=== PATIENT | female | born 1965 | race African-American/Black ===

== ENCOUNTER → 2017-09-02 09:39 | Outpatient (CLI) | payer MEDICARE, MEDICAID ==
[~2017-09-02 09:39] MED LIST: BENZTROPINE ME0.5 MG PO; HALDOL5 MG; LINZESS145 MCG PO; OMEPRAZOLE20 M1; PAXIL20 MG; ZANTAC150 MG PO
[2017-09-22 07:47] VITALS: BMI 33.1
== END | disposition home or self-care (01) ==
LOC: D.RAD 08-30 08:30 → EDBD 09:39 → D.RAD 10:30
DX: K44.9 Diaphragmatic hernia without obstruction or gangrene (principal)

== ENCOUNTER 2017-09-12 11:40 | Day surgery (SDC) | payer MEDICARE, MEDICAID ==
[~2017-09-12] VITALS: Ht 167.6 cm; Wt 93.2 kg
--- NOTE | ~2017-09-12 | OP ---
PATIENT NAME: ERYN HURT MEDICAL RECORD: [id number] :69 LOCATION:DAllanOPS ADMISSION DATE: SURGEON: TAMICA DICK DO DATE OF OPERATION: 09/12/2017 PROCEDURE: EGD with dilation and biopsies. INDICATIONS FOR PROCEDURE: Achalasia, heartburn, nausea and vomiting, epigastric abdominal pain. SCOPE: Olympus video gastroscope. MEDICATIONS: Propofol 200 mg IV per anesthesia. ESTIMATED BLOOD LOSS: Minimal. COMPLICATIONS: None. FINDINGS: Informed consent was given. The patient was made comfortable with the above medication. After reaching an adequate level of sedation by slow IV push, the patient was placed in the left side. The endoscope was advanced under direct visualization through the mouth to the second portion of the duodenum with ease. The entire esophagus had a dilated appearance. As we approached the distal esophagus and GE junction, there were findings consistent with achalasia. The GE junction took some gentle pressure to open for the endoscope to pass through it. Within this GE junction, LA class C reflux-induced esophagitis can be appreciated with a couple esophageal ulcers present. There was no active bleeding. Cold forceps biopsies were taken to submit for histopathology. The endoscope was advanced beyond the GE junction into the stomach and retroflexed to view the cardia. It is difficult to tell, but there does appear to be possibly a past fundoplication. The mucosa of the stomach and small intestine all appeared normal. Random biopsies were taken in the stomach with cold forceps to submit for histology and to rule out the presence of H. pylori. An 18-20 mm dilating CRE balloon was placed through the working channel of the endoscope and the endoscope was withdrawn back into the esophagus. The balloon was inflated and dilation was performed from 18-20 mm successfully. The balloon was then withdrawn from the patient and the endoscope was withdrawn from the patient. The patient tolerated the procedure well and there were no complications. IMPRESSION: 1. LA class C reflux-induced esophagitis with a couple esophageal ulcers present. 2. Likely achalasia with narrowing of the distal esophagus at the GE junction and a markedly dilated proximal esophagus. 3. Probable prior intervention involving the cardia of the stomach. PLAN AND RECOMMENDATIONS: 1. Discharge home when recovery parameters are met. 2. Follow up biopsy specimen results. 3. GERD diet and reflux precautions. 4. Continue current medications. 5. Add Carafate or sucralfate suspension 1 gram q.i.d. 6. Referral back to [facility] for definitive therapy of achalasia. OPERATIVE REPORT [id number] ERYN HURT TRANSINT:[id number] Voice Confirmation ID: [id number] DOCUMENT ID: [id number] TAMICA DICK DO at 1212 CC: [id number] DICTATION DATE: 09/12/17 1529 EDITORIAL INTERN: 09/12/17 1908 [facility] 09/12/17 [facility] [address] [place] [address]
[2017-09-12] MEDS ORDERED: HALDOL5 MG (14:00)
[2017-09-12] MEDS ORDERED: LINZESS145 MCG PO (14:01)
[2017-09-12] MEDS ORDERED: OMEPRAZOLE20 M1 (14:01)
[2017-09-12] MEDS ORDERED: PAXIL20 MG (14:02)
[2017-09-12] MEDS ORDERED: ZANTAC150 MG PO (14:02)
[2017-09-12] MEDS ORDERED: BENZTROPINE ME0.5 MG PO (14:03)
[2017-09-12 14:05] VITALS: BP 97/51; Ht 167.6 cm; Wt 93.2 kg
== END 2017-09-12 16:52 | disposition home or self-care (01) ==
LOC: EDBD 11:40 → D.OPS 11:40
DX: K22.0 Achalasia of cardia (principal); K21.0 Gastro-esophageal reflux disease with esophagitis; K22.10 Ulcer of esophagus without bleeding; Z01.812 Encounter for preprocedural laboratory examination

== ENCOUNTER 2017-09-22 06:52 | Outpatient (CLI) | payer MEDICARE, MEDICAID ==
[~2017-09-22] VITALS: Ht 167.6 cm; Wt 93.2 kg
--- NOTE | ~2017-09-22 | HEMODYNAMI ---
PATIENT:ERYN HURT MEDICAL RECORD: [id number] : 69 LOCATION:D.CAT ADMISSION DATE: 09/22/17 Generatedon:09/22/201710:22 Patient name: ERYN HURT Patient #: [id number] SSN: : 1965 Date of study: 09/22/2017 Page: Of Hemodynamic Procedure Report Patient Data Patient Demographics Procedure consent was obtained First Name: ERYN Gender: Female Last Name: BLU : 1965 Middle Initial: CARMEN Escobedo Age: 52 year(s) Patient #: [id number] Race: Black Additional ID: [id number] Contact details [address]: [address] [place] [address] State: [place] City: [place] Zip code: [address] Past Medical History Allergies Allergen Reaction Date Comments Reported Morphine 09/22/2017 Admission Admission Data Admission Date: 09/22/2017 Admission Time: 6:52 Procedure Procedure Types Cath Procedure Diagnostic Procedure LHC LHC w/Coronaries Procedure Description Procedure Date Procedure Date: 09/22/2017 Procedure Start Time: 10:10 Procedure End Time: 10:20 Procedure Staff Name Function Ino Herzog MD Performing Physician Lacey Odonnell RT Monitor Ehsan Reyes RN Nurse Raegan Roy RT Scrub Procedure Data Cath Procedure Fluoroscopy Diagnostic fluoroscopy Total fluoroscopy Time: 1.7 time: 1.7 min min Diagnostic fluoroscopy Total fluoroscopy dose: 379 dose: 379 mGy mGy Contrast Material Contrast Material Type Amount (ml) Isovue 370 33 Entry Location Entry Primary Successful Side Size Upsize Upsize Entry Closure Diaz ccessful Closure Location (Fr) 1 (Fr) 2 (Fr) Remarks Device Remarks Radial Right 6 Fr Mechanical artery Short Compression Estimated blood loss: 5 ml Diagnostic catheters Device Type Used For End Catheter Placement DIAGNOSTIC D Lo 110cm 5 LV Angiography Fr catheter ([id number]) DIAGNOSTIC D Lo 110cm 5 Left Coronary Fr catheter ([id number]) Angiography DIAGNOSTIC D Lo 110cm 5 Right Coronary Fr catheter ([id number]) Angiography Procedure Complications No complications Procedure Medications Medication Administration Route Dosage Oxygen NC 2 l/min Lidocaine 2% added to field 20 Heparin Flush Bag added to field 2 bags (1000units/500ml NS) 0.9% NaCl I.V. 100 ml/hr Versed I.V. 1 mg Fentanyl I.V. 50 mcg Radial Cocktail I.A. 1 syringe (Verapomil 2mg/Nitro 400mcg/Heparin 1500units) Versed I.V. 1 mg Fentanyl I.V. 50 mcg Versed I.V. 1 mg Fentanyl I.V. 50 mcg Hemodynamics Rest Heart Rate: 54 (bpm) Pressure Samples Time Site Value (mmHg) Purpose Heart Use Rate(bpm) 10:14 LV 110/2,12 EDP 120 Gradients Valve Time Site Site Mean SEP/DFP Peak To Heart Use 1 2 (mmHg) (sec/min) Peak Rate (mmHg) (bpm) Aortic 10:14 LV AO 81 Snapshots Pre Cath Intra NCS Post Cath Vital Signs Time Heart Resp SPO2 etCO2 NIBP Rhythm Pain Sedation Rate (ipm) (%) (mmHg) (mmHg) Status Level (bpm) 10:04:41 43 43 35.8 Measuring NSR 0 (11) 10(A) , No pain 10:06:37 45 32 99 33.6 Aborted NSR 0 (11) 10(A) , No pain 10:08:46 47 17 100 37.3 108/51(78) NSR 0 (11) 10(A) , No pain 10:13:29 57 16 99 43.3 89/55(66) NSR 0 (11) 10(A) , No pain 10:18:12 59 21 96 41 92/51(64) NSR 0 (11) 9(A) , No pain 10:21:45 58 23 95 42.5 93/47(64) NSR 0 (11) 10(A) , No pain Medications Time Medication Route Dose Verified Delivered Reason Notes Effectiveness by by 10:05:35 Oxygen NC 2 l/min Ino Buffie used for Mino Reyes RN procedure 10:05:42 Lidocaine 2% added 20ml Ino Ino for local to vial Mino Herzog MD anesthetic field 10:05:48 Heparin Flush added 2 bags Ino Ino used for Bag to Mino Herzog MD procedure (1000units/500ml field NS) 10:05:57 0.9% NaCl I.V. 100 Ino Buffie Per ml/hr Mino Reyes RN physician 10:08:52 Versed I.V. 1 mg Ino Buffie for sedation Mino Reyes RN 10:08:58 Fentanyl I.V. 50 mcg Ino Buffie for sedation Mino Reyes RN 10:13:05 Radial Cocktail I.A. 1 Ino Ino for (Verapomil syringe Mino Herzog MD vasodilation 2mg/Nitro 400mcg/Heparin 1500units) 10:13:10 Versed I.V. 1 mg Ino Ino for sedation Mino Herzog MD 10:13:13 Fentanyl I.V. 50 mcg Ino Ino for sedation Mino Herzog MD 10:16:07 Versed I.V. 1 mg Ino Ino for sedation Mino Herzog MD 10:16:27 Fentanyl I.V. 50 mcg Ino Ino for sedation Mino Herzog MD Procedure Log Time Note 9:42:57 Ehsan Reyes RN sent for patient. Start room use. 9:42:58 Time tracking: Regular hours (M-F 7:00 - 5:00) 9:43:01 Plan of Care:Hemodynamics will remain stable., Cardiac rhythm will remain stable., Comfort level will be maintained., Respiratory function will remain adequate., Patient/ family verbilizes understanding of procedure., Procedure tolerated without complication., Recovers from procedure without complications.. 9:54:04 Patient received from Pre/Post Procedure Room to [facility] 1 Alert and oriented. Tansferred to table in Supine position. 9:54:05 Warm blankets applied, and josefa hugger turned on for patient comfort. 9:54:06 Correct patient and procedure confirmed by team. 9:54:07 Signed procedure consent form obtained from patient. 9:54:08 ECG and BP/O2 sat monitors applied to patient. 9:54:09 Full Disclosure recording started 10:03:30 Vital chart was started 10:03:34 Rhythm: sinus rhythm 10:03:47 H&P Date Dictated: 09/07/2017 Within 30 days and on chart., H&P Addendum completed by physician on day of procedure. (MUST COMPLETE FOR ALL OUTPATIENTS). 10:03:48 Pre-procedure instructions explained to patient. 10:03:49 Pre-op teaching completed and patient verbalized understanding. 10:03:50 Family in patients room. 10:03:51 Patient NPO since Midnight. 10:03:59 Patient allergic to Morphine 10:04:02 Is the patient allergic to Iodine/contrast media? No. 10:04:03 Is patient on blood thinner?No 10:04:05 Patient diabetic? No. 10:04:07 Previous problem with sedation/anesthesia? No ? 10:04:08 Snore? Yes 10:04:09 Sleep apnea? No 10:04:10 Deviated septum? No 10:04:11 Opens mouth fully? Yes 10:04:12 Sticks out tongue? Yes 10:04:13 Airway obstruction? No ? 10:04:15 Dentures? No ? 10:04:17 Pre procedure: right dorsailis pedis pulse 2+ Normal; easily identifiable; not easily obliterated 10:04:22 Modified Jose Antonio's test Ulnar < 7 seconds 10:04:27 Patient pain scale 0/10 ?. 10:04:31 IV patent on arrival in right forearm with 0.9% NaCl at [facility]. 10:04:33 Lab results completed and on chart. 10:04:36 Right Radial & Right Groin area was prepped with chlora-prep and draped in sterile fashion 10:04:37 Alarms reviewed by R. N. 10:04:38 Sharps counted by scrub and verified by R.N. 10:05:35 Oxygen 2 l/min NC was administered by Ehsan Reyes RN; used for procedure; 10:05:42 Lidocaine 2% 20ml vial added to field was administered by Ino Herzog MD; for local anesthetic; 10:05:48 Heparin Flush Bag (1000units/500ml NS) 2 bags added to field was administered by Ino Herzog MD; used for procedure; 10:05:57 0.9% NaCl 100 ml/hr I.V. was administered by Ehsan Reyes RN; Per physician; 10:06:10 Final Timeout: patient, procedure, and site verified with staff and physician. All members of the team are in agreement. 10:06:13 Right Radial site verified by team. 10:06:17 Physical assessment completed. ASA score P 1 - A normal healthy patient as per Ino Herzog MD. 10:06:20 Sedation plan: IV Moderate Sedation Medication:Versed, Fentanyl 10:07:53 Use device set Radial Dx or PCI 10:07:54 ACIST Syringe (78432) opened to sterile field. 10:07:54 Medline Cath Pack ([id number]) opened to sterile field. 10:07:55 Bag Decanter (2002S) opened to sterile field. 10:07:55 DIAGNOSTIC WIRE .035 260cm J wire (070748) opened to sterile field. 10:07:56 ACIST Hand Control (20015) opened to sterile field. 10:07:56 ACIST Manifold (34390) opened to sterile field. 10:07:57 Tegaderm 4 x 4 (1626W) opened to sterile field. 10:07:57 MBrace Wrist Support ([id number]) opened to sterile field. 10:07:59 NEEDLE Cook 21G 4cm Radial (A38086) opened to sterile field. 10:08:01 SHEATH 6Fr Prelude Radial ([id number]) opened to sterile field. 10:08:52 Versed 1 mg I.V. was administered by Ehsan Reyes RN; for sedation; 10:08:58 Fentanyl 50 mcg I.V. was administered by Ehsan Reyes RN; for sedation; 10:09:46 Zero performed for pressure channel P1 10:09:54 Zero performed for pressure channel P1 10:10:06 Procedure started. 10:10:14 Local anesthetic to right radial artery with Lidocaine 2% by Ino Herzog MD.INITIAL ACCESS ONLY 10:11:15 A 6 Fr Short sheath was inserted into the Right Radial artery 10:11:19 Baseline sample Acquired. 10:13:05 Radial Cocktail (Verapomil 2mg/Nitro 400mcg/Heparin 1500units) 1 syringe I.A. was administered by Ino Herzog MD; for vasodilation; 10:13:10 Versed 1 mg I.V. was administered by Ino Herzog MD; for sedation; 10:13:13 Fentanyl 50 mcg I.V. was administered by Ino Herzog MD; for sedation; 10:13:32 A DIAGNOSTIC D Lo 110cm 5 Fr catheter (277526) was advanced over the wire and used for LV Angiography. 10:14:29 LV gram done using HERRING 10:14:33 EF : 60 % 10:14:40 LV hemodynamics recorded. 10:14:42 Injector settings: Ml/sec: 5, Volume: 15, 10:15:15 A DIAGNOSTIC D Lo 110cm 5 Fr catheter (412229) was advanced over the wire and used for Left Coronary Angiography. 10:16:07 Versed 1 mg I.V. was administered by Ino Herzog MD; for sedation; 10:16:23 A DIAGNOSTIC D Lo 110cm 5 Fr catheter (099336) was advanced over the wire and used for Right Coronary Angiography. 10:16:27 Fentanyl 50 mcg I.V. was administered by Ino Herzog MD; for sedation; 10:16:49 Catheter removed. 10:17:21 Sheath removed intact; hemostasis achieved with Mechanical Compression to the Right Radial artery. 10:17:23 Procedure ended.(Physican Out) 10:17:33 Fluoroscopy time 01.70 minutes. 10:17:36 Fluoroscopy dose: 379 mGy 10:17:36 Flurop Dose total: 379 10:18:15 Contrast amount:Isovue 370 33ml. 10:18:16 Sharps counted by scrub and verified by R.N. 10:18:19 TR band inflated with 12cc of air. 10:18:20 Insertion/operative site no bleeding no hematoma. 10:18:28 Post right radial artery:stable, clean and dry 10:18:30 Post Procedure Pulses reassessed and unchanged 10:18:37 Post-procedure physical assessment completed. ASA score P 1 - A normal healthy patient as per Ino Herzog MD. 10:18:39 Post procedure rhythm: unchanged. 10:18:42 Estimated blood loss: 5 ml 10:18:43 Post procedure instruction explained to patient.Patient verbalizes understanding. 10:18:43 Patient needs reinforcement of post procedure teaching. 10:19:01 Procedure Complication : No complications 10:19:04 See physician's report for complete and final results. 10:19:15 TR BAND Standard (YSA24NAE) opened to sterile field. 10:19:39 Procedure and supply charges have been captured, reviewed, submitted and are correct. 10:19:54 Vital chart was stopped 10:20:06 Report given to Pre/Post Procedure Room. 10:20:09 Patient transfered to Pre/Post Procedure Room with Stretcher. 10:20:19 Procedure ended. 10:20:19 Full Disclosure recording stopped 10:20:25 End room use (Document Last) Device Usage Item Name Manufacture Quantity Catalog Number Hospital Part Current M inimal Lot# / Charge Number Stock Stock Serial# Code ACIST Syringe Acist 1 11535 096021 532876 201084 2 0 (96740) Medical Systems Inc Medline Cath Cardinal 1 [id number] 560725 62063 358620 5 Pack Health ([id number]) Bag Decanter Microtek 1 2001S 479675 43274 945953 5 (2001S) Medical Inc. DIAGNOSTIC WIRE St Kristian 1 396724 276704 188852 360637 3 0 .035 260cm J wire (223420) ACIST Hand Acist 1 15481 717676 490382 669496 5 Control (13784) Medical Systems Inc ACIST Manifold Acist 1 34075 863053 961204 090880 5 (36913) Medical Systems Inc Tegaderm 4 x 4 3M 1 1626W 405527 497428 542408 5 (1626W) MBrace Wrist Advanced 1 140-0250-00 517918 24796 047081 5 Support Vascular (267172597) Dynamics NEEDLE Cook 21G Cook Medical 1 S37481 954770 698938 289079 5 4cm Radial (B77873) SHEATH 6Fr Merit 1 [id number] 435274 806429 411187 5 Prelude Radial Medical ([id number]) DIAGNOSTIC Terumo 1 40-6989 309430 873779 144279 5 D Lo 110cm 5 Fr catheter (183381) TR BAND Terumo 1 [id number] 502513 360792 663931 4 0 Standard (IOX11NAS) Signature Audit Viola Stage Time Signature Unsigned Intra-Procedure 09/22/2017 Lacey 10:22:28 AM Counts RT(R) Signatures Monitor : Lacey Signature : Counts RT Date : Time : [id number] [place] [address]
[2017-09-22 07:47] VITALS: BP 101/46; Ht 167.6 cm; Wt 93.2 kg
[2017-09-22 07:49] LABS: BASOPHILS 0.3 % (0-2); EOSINOPHILS 1.6 % (0-7); HEMATOCRIT 41.8 % (36.0-48.0); HEMOGLOBIN 13.8 g/dL (12-16); IMMATURE GRANULOCYTES 0.2 % (0-5); LYMPHOCYTES 22.1 % (15-50); MCH 28.8 pg (26.0-34.0); MCV 87.1 fL (80.0-100.0); MONOCYTES 6.8 % (2-11); PLATELET COUNT 285 10x3/uL (130-400); RDW 14.6 % (11.5-14.5); WBC 6.1 10x3/uL (4.8-10.8)
[2017-09-22 08:04] LABS: CALC OSMOLALITY 276 mosm/kg (275-300); CALCIUM 9.1 mg/dL (8.5-10.1); CARBON DIOXIDE 26.5 mmol/L (21.0-32.0); CHLORIDE - SERUM 108 mmol/L (98-107); CREATININE - SERUM 0.7 mg/dL (0.6-1.3); GLUCOSE 90 mg/dL (74-106); POTASSIUM - SERUM 3.9 mmol/L (3.5-5.1); SODIUM 140 mmol/L (136-145); UREA NITROGEN 6 mg/dL (7-18); eGFR NON AFRICAN AMERICAN > 90 mL/min (90-120)
== END 2017-09-22 13:25 | disposition home or self-care (01) ==
LOC: D.CATH 06:52 → EDBD 09:00 → D.CATH 13:25
PROVIDERS: Internal Medicine Cardiovascular Disease
DX: I20.9 Angina pectoris, unspecified (principal); Z01.812 Encounter for preprocedural laboratory examination

== ENCOUNTER 2017-11-23 05:48 | Day surgery (SDC) | payer MEDICARE, MEDICAID ==
[~2017-11-23] VITALS: Ht 167.6 cm; Wt 89.1 kg
--- NOTE | ~2017-11-23 | OP ---
PATIENT NAME: ERYN HURT MEDICAL RECORD: [id number] :69 LOCATION:D.OPS ADMISSION DATE: SURGEON: TAMICA DICK DO DATE OF OPERATION: 11/23/2017 PROCEDURE: Colonoscopy with polypectomy. INDICATIONS FOR PROCEDURE: Screening for colorectal cancer. SCOPE: Olympus video pediatric colonoscope. MEDICATIONS: General anesthesia, see anesthesia report. WITHDRAWAL TIME: 17 minutes. ESTIMATED BLOOD LOSS: Minimal. COMPLICATIONS: None. FINDINGS: Informed consent was given. The patient was made comfortable with the above medication. After reaching an adequate level of sedation by slow IV push, the patient was placed on her left side. At that time, she began coughing on multiple secretions. For her safety, sedation was lessened and the patient was awakened slightly. She was allowed to cough and secretions were cleared out. After this, the procedure was resumed and the patient was sedated and intubated. She was then placed back on her left side. A digital rectal examination was performed and was normal. The endoscope was then advanced under direct visualization through the rectum to the cecum, confirmed by the presence of the appendiceal orifice and ileocecal valve. The endoscope was slowly withdrawn and mucosa was carefully examined. The prep quality was good. There were a total of 5 polyps visualized on today's examination. Three of these were located in the descending colon and 2 were located in the transverse colon. They were all benign-appearing and sessile and ranged in size from 3-6 mm in diameter. They were all removed using a hot snare in 1 piece and completely retrieved. There were no diverticula visualized on today's examination. Retroflexion was performed in the rectum with visualization of grade I internal hemorrhoids without bleeding. The endoscope was then withdrawn from the patient. The patient tolerated the procedure well and there were no complications. IMPRESSION: 1. Five polyps as described above, removed using hot snare. 2. Grade I internal hemorrhoids without bleeding. PLAN AND RECOMMENDATIONS: 1. Discharge home when recovery parameters are met. 2. Follow up biopsy specimen results. 3. High-fiber diet. 4. Continue current medications. 5. Recall colonoscopy in 3 years with general anesthesia for colorectal cancer screening purposes. OPERATIVE REPORT [id number] ERYN HURT TRANSINT:[id number] Voice Confirmation ID: [id number] DOCUMENT ID: [id number] TAMICA DICK DO at 0740 CC: [id number] DICTATION DATE: 11/23/17 1004 HAND TOOL LAPPER: 11/23/17 1228 [facility] 11/23/17 [address] [place] [address]
[2017-11-23 06:10] LABS: HEMATOCRIT 43.4 % (36.0-48.0); HEMOGLOBIN 14.4 g/dL (12-16); MCH 28.4 pg (26.0-34.0); MCHC 33.2 g/dL (31.0-37.0); MCV 85.6 fL (80.0-100.0); MEAN PLATELET VOLUME 9.7 fL (7.4-10.4); RBC 5.07 10x6/uL (4.00-5.40); WBC 5.8 10x3/uL (4.8-10.8)
[2017-11-23 08:23] VITALS: BP 106/58; Ht 167.6 cm; Wt 89.1 kg
== END 2017-11-23 11:35 | disposition home or self-care (01) ==
LOC: D.OPS 05:48
PROVIDERS: Anesthesiology
DX: Z12.11 Encounter for screening for malignant neoplasm of colon (principal); D12.4 Benign neoplasm of descending colon; D12.3 Benign neoplasm of transverse colon; K64.0 First degree hemorrhoids; Z01.812 Encounter for preprocedural laboratory examination

== ENCOUNTER 2018-01-15 19:21 | Emergency (ER) | payer MEDICARE, MEDICAID ==
[~2018-01-15] VITALS: Ht 167.6 cm; Wt 89.4 kg
[~2018-01-15 19:21] MED LIST changes: -HALDOL5 MG; +HALDOL5 MG PO; -OMEPRAZOLE20 M1; +OMEPRAZOLE20 M1 PO; -PAXIL20 MG; +PAXIL20 MG PO
[2018-01-15 19:27] VITALS: Ht 167.6 cm; Wt 89.4 kg
[2018-01-15 19:55] LABS: APPEARANCE CLEAR (CLEAR); BILIRUBIN 1+ (NEGATIVE); COLOR DK YELLOW (YELLOW); GLUCOSE NEGATIVE (NEGATIVE); KETONE NEGATIVE (NEGATIVE); NITRITE NEGATIVE (NEGATIVE); PROTEIN NEGATIVE (NEGATIVE); SPECIFIC GRAVITY 1.015 (1.005-1.020)
[2018-01-15 19:56] LABS: WHITE CELLS - URINE 0-5 /hpf (0-5)
[2018-01-15 19:57] LABS: BACTERIA FEW /hpf (NONE SEEN); EPITHELIAL CELLS 0-5 /hpf (0-5); MUCUS <1+ /lpf (NONE SEEN)
[2018-01-15] MEDS ORDERED: NORCO 7.5/325 T1 TA1 PO (20:56)
[2018-01-15] MEDS ORDERED: FLOMAX0.4 MG PO (20:56)
[2018-01-15 21:20] VITALS: BP 109/60
== END 2018-01-15 21:21 | disposition home or self-care (01) ==
LOC: D.ER 19:21
PROVIDERS: Emergency Medicine
DX: R10.9 Unspecified abdominal pain (principal); R31.29 Other microscopic hematuria; M25.512 Pain in left shoulder; K21.9 Gastro-esophageal reflux disease without esophagitis; Z86.59 Personal history of other mental and behavioral disorders; F17.200 Nicotine dependence, unspecified, uncomplicated

== ENCOUNTER 2018-01-17 16:00 | Observation (INO) | payer MEDICARE, MEDICAID ==
[~2018-01-17] VITALS: Ht 167.6 cm; Wt 85.0 kg
--- NOTE | ~2018-01-17 | MORECARE ---
CASE MANAGEMENT DISCHARGE SUMMARY PATIENT: ERYN HURT UNIT: [id number] ADM DATE: 01/17/18 AGE: 52 : 69 SEX: F ROOM/BED: D.6256 AUTHOR: CLOTILDE,DOC PHYSICIAN: REFERRING PHYSICIAN: VERITO CARDOSO DO DATE OF SERVICE: 01/23/18 Discharge Plan Patient Name: ERYN HURT Facility: [facility]:[place] : 1965 Planned Disposition: Home Anticipated Discharge Date: 01/23/18 Discharge Date: Expected LOS: 6 Initial Reviewer: [email or web address] Initial Review Date: 01/20/2018 Generated: 01/23/18 11:27 am Comments DCP- Discharge Planning Updated by [email or web address]: Nahid Marie on 01/20/18 3:[address] Patient Name: ERYN HURT Admission Status: Urgent Accout number: [id number] Admission Date: 01-17-2018 : 1965 Admission Diagnosis:UNSPECIFIED ABDOMINAL PAIN Attending: VERITO CARDOSO Current LOS: 3 Anticipated DC Date: Planned Disposition: Home Primary Insurance: [facility] MEDICARE SOLUTIONS Discharge Planning Comments: CM MET WITH PT IN ROOM TO DISCUSS DISCHARGE PLANNING AND NEEDS. PT REPORTS LIVING AT HOME INDEPENDENTLY WITH HER FRIEND. PT HAS NO MEDICAL EQUIPMENT AND NO OUTSIDE SERVICES ASSISTING IN THE HOME. CM DISCUSSED AVAILABILITY OF HOME HEALTH, REHAB SERVICES AND MEDICAL EQUIPMENT. PT DENIES DISCHARGE NEEDS, REPORTS HER SISTER WILL PICK HER UP FOR DISCHARGE HOME. IMPORTANT MESSAGE FROM MEDICARE PROVIDED AND EXPLAINED. PT PLANS TO DISCHARGE HOME WITH FRIEND, FAMILY TO TRANSPORT, DENIES NEEDS AT THIS TIME. CM TO FOLLOW AND ASSIST IF NEEDED. Car Repairer Pullman: Nahid Marie DCPIA - Discharge Planning Initial Assessment Updated by [email or web address]: Nahid Marie on 01/20/18 4:57 pm * Is the patient Alert and Oriented? Yes * How many steps to enter\exit or inside your home? * PCP DR. CARDOSO * Pharmacy [facility] * Preadmission Environment Home with Family * ADLs Independent * Equipment None * Other Equipment NO MEDICAL EQUIPMENT PROVIDER PREFERENCE * List name and contact numbers for known caregivers / representatives who currently or will assist patient after discharge: BAO TATE, MOTHER, * Verbal permission to speak to the caregivers and representatives has been obtained from the patient. N/A * Community resources currently utilized None * Please name any agencies selected above. NONE * Additional services required to return to the preadmission environment? No * Can the patient safely return to the preadmission environment? Yes * Has this patient been hospitalized within the prior 30 days at any hospital? No Coverage Notice Reviewer: [email or web address] Yocasta Marie Notice Issued Date-Time: 01/20/2018 16:40 Notice Type: IM Discharge Notice Notice Delivered To: Patient Relationship to Patient: [facility] Name: Delivery Method: HAND - Hand Delivered Ashanti Days: Prior Verbal Notification: Recipient Understood Notice: Yes Recipient Signature: Yes Med Rec Note Co-signed by Attending: Coverage Notice Comment: Last DP export: 01/20/18 3:59 Patient Name: ERYN HURT Page [phone] at 1027 All edits/amendments must be made on the electronic document DICTATION DATE: 01/23/18 1027 SKIVER MACHINE OPERATOR: CONSTANZA 01/23/18 1027 RPT#: [id number] DC DATE: STATUS: ADM IN [facility] [address] [place] [address] END OF REPORT
--- NOTE | ~2018-01-17 | CN ---
PATIENT NAME:ERYN SMITH MEDICAL RECORD: [id number] : [birth year] LOCATION:D. D.2114 ADMIT DATE: 01/17/18 ACCOUNT: [id number] CONSULTING PHYSICIAN: LISSETTE DOMINGO MD REFERRING PHYSICIAN: MARCELLO CARDOSO DO DATE OF CONSULTATION: 01/18/2018 CONSULT REQUESTING PHYSICIAN: Marcello Cardoso DO REASON FOR CONSULTATION: Pneumonia. HISTORY OF PRESENT ILLNESS: Ms. Smith is a 52-year-old female who is complaining of left-sided pleuritic type of chest pain. The patient had CT scan of the abdomen which showed bilateral pneumonia and trace pleural effusion as well as hiatal hernia. According to the patient, she is regurgitating, especially at night. Sometimes she wakes up with choking feeling. She also had fever and chill. REVIEW OF THE SYSTEMS: As in history of present illness. PAST MEDICAL HISTORY: 1. History of cardiac murmur. 2. Gastroesophageal reflux disease. 3. Schizophrenia and bipolar disorder. PAST SURGICAL HISTORY: Hysterectomy. ALLERGIES: SHE IS ALLERGIC TO MORPHINE. MEDICATIONS: [employer] was reviewed. PERSONAL AND SOCIAL HISTORY: The patient is smoking one and a half pack per day. She is nondrinker. FAMILY HISTORY: Significant for cardiovascular disease. PHYSICAL EXAMINATION: GENERAL: Now, the patient is lying comfortably in bed. She is not in acute distress. VITAL SIGNS: Blood pressure is 108/61, pulse is 86, respiration is 17, temperature is 98.2, SpO2 is 96% on 2 liters nasal cannula. HEENT: Conjunctivae are pink. Sclerae are not icteric. NECK: Neck is supple. No JVD. CHEST: The chest excursion is minimal on both sides. There is no wheeze. There are bibasal crackles. HEART: Rhythm regular. Normal sound. No murmur. ABDOMEN: Abdomen is soft. Bowel sounds present. No hepatosplenomegaly. RECTAL: Deferred. EXTREMITIES: No cyanosis. No clubbing. No pedal edema. SKIN: The skin is warm. Normal turgor. CENTRAL NERVOUS SYSTEM: The patient is awake and alert. There is no obvious cranial nerve abnormality. The gait was not tested. DIAGNOSTIC DATA: CT scan of the abdomen showed bilateral lower lobe infiltrate. There was hiatal hernia. There were small bilateral pleural effusions. There CONSULT REPORT [id number] ERYN SMITH S were no kidney stones. OTHER LABORATORY DATA: CBC; WBC is 10.9, hemoglobin 11.9, hematocrit is 36.4, and platelet count is 279. IMPRESSION: 1. Acute hypoxic respiratory failure. 2. Bilateral lower lobe pneumonia, possible aspiration with hiatal hernia and regurgitation. 3. Gastroesophageal reflux disease. 4. Pleurisy. 5. Bilateral pleural effusion, most likely parapneumonic. 6. Leukocytosis secondary to pneumonia. 7. Tobacco dependence syndrome, suspect COPD. RECOMMENDATION: 1. I will discontinue Rocephin and start on Zosyn for anaerobic coverage as well as add Levaquin. 2. GERD precaution. 3. The GI has already been consulted. 4. Followup labs and chest radiograph. 5. The patient was counseled to quit smoking. 6. Pain control. Dr. Cardoso, thank you for involving me in the care of Ms. Smith. TRANSINT:[id number] Voice Confirmation ID: [id number] DOCUMENT ID: [id number] LISSETTE DOMINGO MD CC: [id number] DICTATION DATE: 01/18/18 161 WIRE PRODUCTS INSPECTOR: 01/18/18 1708 ADM IN [facility] [address] [place] [address]
--- NOTE | ~2018-01-17 | MORECARE ---
CASE MANAGEMENT DISCHARGE SUMMARY PATIENT: ERYN HURT UNIT: [id number] ADM DATE: 01/17/18 AGE: 52 : 69 SEX: F ROOM/BED: D.9857 AUTHOR: CLOTILDEDOC PHYSICIAN: REFERRING PHYSICIAN: VERITO CARDOSO DO DATE OF SERVICE: 01/20/18 Discharge Plan Patient Name: ERYN HURT Facility: [facility]:[place] : 1965 Planned Disposition: Home Anticipated Discharge Date: Discharge Date: Expected LOS: Initial Reviewer: [email or web address] Initial Review Date: 01/20/2018 Generated: 01/20/18 5:59 pm Comments DCP- Discharge Planning Updated by [email or web address]: Nahid Marie on 01/20/18 3:[address] Patient Name: ERYN HURT Admission Status: Urgent Accout number: [id number] Admission Date: 01-17-2018 : 1965 Admission Diagnosis:UNSPECIFIED ABDOMINAL PAIN Attending: VERITO CARDOSO Current LOS: 3 Anticipated DC Date: Planned Disposition: Home Primary Insurance: [facility] MEDICARE SOLUTIONS Discharge Planning Comments: CM MET WITH PT IN ROOM TO DISCUSS DISCHARGE PLANNING AND NEEDS. PT REPORTS LIVING AT HOME INDEPENDENTLY WITH HER FRIEND. PT HAS NO MEDICAL EQUIPMENT AND NO OUTSIDE SERVICES ASSISTING IN THE HOME. CM DISCUSSED AVAILABILITY OF HOME HEALTH, REHAB SERVICES AND MEDICAL EQUIPMENT. PT DENIES DISCHARGE NEEDS, REPORTS HER SISTER WILL PICK HER UP FOR DISCHARGE HOME. IMPORTANT MESSAGE FROM MEDICARE PROVIDED AND EXPLAINED. PT PLANS TO DISCHARGE HOME WITH FRIEND, FAMILY TO TRANSPORT, DENIES NEEDS AT THIS TIME. CM TO FOLLOW AND ASSIST IF NEEDED. Lead Informatica Developer: Nahid Marie DCPIA - Discharge Planning Initial Assessment Updated by [email or web address]: Nahid Marie on 01/20/18 4:57 pm * Is the patient Alert and Oriented? Yes * How many steps to enter\exit or inside your home? * PCP DR. CARDOSO * Pharmacy [facility] IN [place] * Preadmission Environment Home with Family * ADLs Independent * Equipment None * Other Equipment NO MEDICAL EQUIPMENT PROVIDER PREFERENCE * List name and contact numbers for known caregivers / representatives who currently or will assist patient after discharge: BAO TATE, MOTHER, * Verbal permission to speak to the caregivers and representatives has been obtained from the patient. N/A * Community resources currently utilized None * Please name any agencies selected above. NONE * Additional services required to return to the preadmission environment? No * Can the patient safely return to the preadmission environment? Yes * Has this patient been hospitalized within the prior 30 days at any hospital? No Coverage Notice Reviewer: [id number] Yocasta Marie Notice Issued Date-Time: 01/20/2018 16:40 Notice Type: IM Discharge Notice Notice Delivered To: Patient Relationship to Patient: Core Sucker Name: Delivery Method: HAND - Hand Delivered Ashanti Days: Prior Verbal Notification: Recipient Understood Notice: Yes Recipient Signature: Yes Med Rec Note Co-signed by Attending: Coverage Notice Comment: Patient Name: ERYN HURT Page [phone] at 1659 All edits/amendments must be made on the electronic document DICTATION DATE: 01/20/181658 PLANT FACILITIES TECHNICIAN: CONSTANZA 01/20/181658 RPT#: [id number] DC DATE: STATUS: ADM IN [facility] [address] [place] [address] END OF REPORT
--- NOTE | ~2018-01-17 | MORECARE ---
CASE MANAGEMENT DISCHARGE SUMMARY PATIENT: ERYN HURT UNIT: [id number] ADM DATE: 01/17/18 AGE: 52 : 69 SEX: F ROOM/BED: D.6912 AUTHOR: AVI MABRY PHYSICIAN: REFERRING PHYSICIAN: VERITO CARDOSO DO DATE OF SERVICE: 01/23/18 Discharge Plan Patient Name: ERYN HURT Facility: [facility]:[place] : 1965 Planned Disposition: Home Anticipated Discharge Date: 01/23/18 Discharge Date: Expected LOS: 6 Initial Reviewer: [email or web address] Initial Review Date: 01/20/2018 Generated: 01/23/18 11:35 am Comments DCP- Discharge Planning Updated by [email or web address]: Nahid Otto on 01/23/18 9:[address] Patient Name: ERYN HURT Encounter No: [id number] : 1965 Primary Insurance: [facility] MEDICARE SOLUTIONS Anticipated DC Date: 01-23-2018 Planned Disposition: Home DCP follow-up note: CM MET WITH PT IN ROOM TO DISCUSS DISCHARGE NEEDS AND PLANNING. CM DISCUSSED AVAILABILITY OF HOME HEALTH, REHAB SERVICES AND MEDICAL EQUIPMENT. PT DENIES DISCHARGE NEEDS. SISTER TO TRANSPORT HOME AT DISCHARGE TODAY. IMPORTANT MESSAGE FROM MEDICARE PROVIDED AND EXPLAINED. IRON PLASTIC BULLET MAKER NURSE NOTIFIED. NAHID OTTO CASE SONU DCP- Discharge Planning Updated by [email or web address]: Nahid Otto on 01/20/18 3:[address] Patient Name: ERYN HURT Admission Status: Urgent Accout number: [id number] Admission Date: 01-17-2018 : 1965 Admission Diagnosis:UNSPECIFIED ABDOMINAL PAIN Attending: VERITO CARDOSO Current LOS: 3 Anticipated DC Date: Planned Disposition: Home Primary Insurance: [facility] MEDICARE SOLUTIONS Discharge Planning Comments: CM MET WITH PT IN ROOM TO DISCUSS DISCHARGE PLANNING AND NEEDS. PT REPORTS LIVING AT HOME INDEPENDENTLY WITH HER FRIEND. PT HAS NO MEDICAL EQUIPMENT AND NO OUTSIDE SERVICES ASSISTING IN THE HOME. CM DISCUSSED AVAILABILITY OF HOME HEALTH, REHAB SERVICES AND MEDICAL EQUIPMENT. PT DENIES DISCHARGE NEEDS, REPORTS HER SISTER WILL PICK HER UP FOR DISCHARGE HOME. IMPORTANT MESSAGE FROM MEDICARE PROVIDED AND EXPLAINED. PT PLANS TO DISCHARGE HOME WITH FRIEND, FAMILY TO TRANSPORT, DENIES NEEDS AT THIS TIME. CM TO FOLLOW AND ASSIST IF NEEDED. Echocardiography Tech: Nahid Otto DCPIA - Discharge Planning Initial Assessment Updated by [id number]: Nahid Otto on 01/20/18 4:57 pm * Is the patient Alert and Oriented? Yes * How many steps to enter\exit or inside your home? * PCP DR. CARDOSO * Pharmacy [facility] IN [place] * Preadmission Environment Home with Family * ADLs Independent * Equipment None * Other Equipment NO MEDICAL EQUIPMENT PROVIDER PREFERENCE * List name and contact numbers for known caregivers / representatives who currently or will assist patient after discharge: BAO TATE, MOTHER, * Verbal permission to speak to the caregivers and representatives has been obtained from the patient. N/A * Community resources currently utilized None * Please name any agencies selected above. NONE * Additional services required to return to the preadmission environment? No * Can the patient safely return to the preadmission environment? Yes * Has this patient been hospitalized within the prior 30 days at any hospital? No Coverage Notice Reviewer: PASTORA Otto Notice Issued Date-Time: 01/20/2018 16:40 Notice Type: IM Discharge Notice Notice Delivered To: Patient Relationship to Patient: Agency Sales Management Assistant Name: Delivery Method: HAND - Hand Delivered Ashanti Days: Prior Verbal Notification: Recipient Understood Notice: Yes Recipient Signature: Yes Med Rec Note Co-signed by Attending: Coverage Notice Comment: Reviewer: [email or web address] Otto Notice Issued Date-Time: 01/23/2018 10:15 Notice Type: IM Discharge Notice Notice Delivered To: Patient Relationship to Patient: Agency Sales Management Assistant Name: Delivery Method: HAND - Hand Delivered Ashanti Days: Prior Verbal Notification: Recipient Understood Notice: Yes Recipient Signature: Yes Med Rec Note Co-signed by Attending: Coverage Notice Comment: Last DP export: 01/23/18 9:27 Patient Name: ERYN HURT Page [id number] at 1035 All edits/amendments must be made on the electronic document DICTATION DATE: 01/23/18 1035 ELL TUTOR: CONSTANZA 01/23/18 1035 RPT#: [id number] DC DATE: STATUS: ADM IN [facility] [address] [place] [address] END OF REPORT
[~2018-01-17 16:00] MED LIST changes: +FLOMAX0.4 MG PO; +NORCO 7.5/325 T1 TA1 PO
[2018-01-17 16:26] VITALS: BP 135/67; BMI 31.8
[2018-01-17 18:05] LABS: BASOPHILS 0.1 % (0-2); EOSINOPHILS 0.8 % (0-7); HEMATOCRIT 39.8 % (36.0-48.0); IMMATURE GRANULOCYTES 0.3 % (0-5); LYMPHOCYTES 10.4 % (15-50); MCH 27.9 pg (26.0-34.0); MCHC 32.7 g/dL (31.0-37.0); MCV 85.4 fL (80.0-100.0); MEAN PLATELET VOLUME 9.9 fL (7.4-10.4); NEUTROPHILS 79.4 % (40-80); PLATELET COUNT 265 10x3/uL (130-400); RBC 4.66 10x6/uL (4.00-5.40); RDW 15.7 % (11.5-14.5); WBC 11.8 10x3/uL (4.8-10.8)
[2018-01-17 18:39] LABS: ALBUMIN 2.6 g/dL (3.4-5.0); ALKALINE PHOSPHATASE 66 U/L (46-116); ALT (SGPT) 8 U/L (10-68); AMYLASE - SERUM 22 U/L (25-115); BILIRUBIN - TOTAL 0.63 mg/dL (0.2-1.3); CALC OSMOLALITY 267 mosm/kg (275-300); CHLORIDE - SERUM 99 mmol/L (98-107); CKMB 0.1 U/L (0.0-3.6); CREATINE KINASE 26 UL (21-215); CREATININE - SERUM 0.8 mg/dL (0.6-1.3); GLUCOSE 89 mg/dL (74-106); LIPASE 57 U/L (73-393); POTASSIUM - SERUM 3.5 mmol/L (3.5-5.1); PROTEIN - SERUM 7.6 g/dL (6.4-8.2); SODIUM 136 mmol/L (136-145); UREA NITROGEN 5 mg/dL (7-18); eGFR NON AFRICAN AMERICAN 80 mL/min (90-120)
[2018-01-17 18:47] LABS: TROPONIN-I < 0.017 ng/mL (0.000-0.060)
[2018-01-17 21:03] LABS: APPEARANCE CLEAR (CLEAR); BILIRUBIN NEGATIVE (NEGATIVE); COLOR DK YELLOW (YELLOW); GLUCOSE NEGATIVE (NEGATIVE); KETONE NEGATIVE (NEGATIVE); NITRITE NEGATIVE (NEGATIVE); PROTEIN NEGATIVE (NEGATIVE); UROBILINOGEN NORMAL (NORMAL)
[2018-01-17 21:04] LABS: BACTERIA NONE SEEN /hpf (NONE SEEN); EPITHELIAL CELLS RARE /hpf (0-5); RED CELLS - URINE 0-5 /hpf (0-5); WHITE CELLS - URINE NSEEN /hpf (0-5)
[2018-01-17 21:28] VITALS: BP 103/55
[2018-01-17 23:02] LABS: CREATINE KINASE 26 UL (21-215)
[2018-01-17 23:04] LABS: TROPONIN-I < 0.017 ng/mL (0.000-0.060)
[2018-01-18 01:34] VITALS: BP 101/60
[2018-01-18 05:59] LABS: BASOPHILS 0.1 % (0-2); HEMATOCRIT 36.4 % (36.0-48.0); HEMOGLOBIN 11.9 g/dL (12-16); IMMATURE GRANULOCYTES 0.4 % (0-5); LYMPHOCYTES 10.3 % (15-50); MCH 27.7 pg (26.0-34.0); MCHC 32.7 g/dL (31.0-37.0); MCV 84.8 fL (80.0-100.0); MEAN PLATELET VOLUME 9.9 fL (7.4-10.4); MONOCYTES 10.3 % (2-11); NEUTROPHILS 77.9 % (40-80); PLATELET COUNT 279 10x3/uL (130-400); RBC 4.29 10x6/uL (4.00-5.40); RDW 15.6 % (11.5-14.5); WBC 10.9 10x3/uL (4.8-10.8)
[2018-01-18 06:10] VITALS: BP 108/61
[2018-01-18 06:31] LABS: ALBUMIN 2.3 g/dL (3.4-5.0); ALKALINE PHOSPHATASE 66 U/L (46-116); ALT (SGPT) 8 U/L (10-68); BILIRUBIN - TOTAL 0.73 mg/dL (0.2-1.3); CALC OSMOLALITY 266 mosm/kg (275-300); CALCIUM 8.5 mg/dL (8.5-10.1); CARBON DIOXIDE 28.2 mmol/L (21.0-32.0); CHLORIDE - SERUM 100 mmol/L (98-107); CKMB 0.2 U/L (0.0-3.6); CREATINE KINASE 24 UL (21-215); CREATININE - SERUM 0.6 mg/dL (0.6-1.3); GLUCOSE 83 mg/dL (74-106); POTASSIUM - SERUM 3.6 mmol/L (3.5-5.1); PROTEIN - SERUM 6.9 g/dL (6.4-8.2); SODIUM 135 mmol/L (136-145); TROPONIN-I < 0.017 ng/mL (0.000-0.060); UREA NITROGEN 6 mg/dL (7-18); eGFR NON AFRICAN AMERICAN > 90 mL/min (90-120)
[2018-01-18 10:19] VITALS: BP 96/51
[2018-01-18 11:20] VITALS: BP 155/67
[2018-01-18 14:47] VITALS: BP 112/68
[2018-01-18 21:31] VITALS: BP 108/60
[2018-01-19 01:11] VITALS: BP 96/53
[2018-01-19 04:55] LABS: BASOPHILS 0 % (0-2); EOSINOPHILS 2.7 % (0-7); HEMATOCRIT 34.1 % (36.0-48.0); IMMATURE GRANULOCYTES 0.4 % (0-5); LYMPHOCYTES 16.3 % (15-50); MCH 27.5 pg (26.0-34.0); MCHC 32.3 g/dL (31.0-37.0); MCV 85.3 fL (80.0-100.0); MEAN PLATELET VOLUME 9.8 fL (7.4-10.4); MONOCYTES 10.9 % (2-11); NEUTROPHILS 69.7 % (40-80); PLATELET COUNT 311 10x3/uL (130-400); RDW 15.7 % (11.5-14.5)
[2018-01-19 05:02] LABS: ALKALINE PHOSPHATASE 66 U/L (46-116); BILIRUBIN - TOTAL 0.55 mg/dL (0.2-1.3); CALC OSMOLALITY 267 mosm/kg (275-300); CALCIUM 8.4 mg/dL (8.5-10.1); CARBON DIOXIDE 27.2 mmol/L (21.0-32.0); CHLORIDE - SERUM 102 mmol/L (98-107); CREATININE - SERUM 0.6 mg/dL (0.6-1.3); GLUCOSE 84 mg/dL (74-106); POTASSIUM - SERUM 3.6 mmol/L (3.5-5.1); PROTEIN - SERUM 6.5 g/dL (6.4-8.2); SODIUM 136 mmol/L (136-145); UREA NITROGEN 5 mg/dL (7-18); WBC 8.1 10x3/uL (4.8-10.8); eGFR NON AFRICAN AMERICAN > 90 mL/min (90-120)
[2018-01-19 05:07] LABS: ALT (SGPT) 13 U/L (10-68)
[2018-01-19 07:25] VITALS: BP 92/49
[2018-01-19 08:30] VITALS: BP 92/52
[2018-01-19 12:10] VITALS: BP 91/53
[2018-01-19 15:46] VITALS: BP 107/48
[2018-01-19 22:02] VITALS: BP 92/47
[2018-01-20 01:00] VITALS: BP 90/57
[2018-01-20 04:00] VITALS: BP 96/52
[2018-01-20 04:20] LABS: BASOPHILS 0.3 % (0-2); EOSINOPHILS 5.6 % (0-7); HEMATOCRIT 33.5 % (36.0-48.0); HEMOGLOBIN 10.8 g/dL (12-16); IMMATURE GRANULOCYTES 0.3 % (0-5); LYMPHOCYTES 22.7 % (15-50); MCH 27.5 pg (26.0-34.0); MCHC 32.2 g/dL (31.0-37.0); MCV 85.2 fL (80.0-100.0); MEAN PLATELET VOLUME 9.6 fL (7.4-10.4); MONOCYTES 9.5 % (2-11); NEUTROPHILS 61.6 % (40-80); PLATELET COUNT 344 10x3/uL (130-400); RBC 3.93 10x6/uL (4.00-5.40); RDW 15.7 % (11.5-14.5); WBC 6.7 10x3/uL (4.8-10.8)
[2018-01-20 04:29] LABS: ALKALINE PHOSPHATASE 58 U/L (46-116); ALT (SGPT) 14 U/L (10-68); BILIRUBIN - TOTAL 0.42 mg/dL (0.2-1.3); CALC OSMOLALITY 274 mosm/kg (275-300); CALCIUM 8.6 mg/dL (8.5-10.1); CARBON DIOXIDE 25.6 mmol/L (21.0-32.0); CHLORIDE - SERUM 105 mmol/L (98-107); CREATININE - SERUM 0.6 mg/dL (0.6-1.3); GLUCOSE 100 mg/dL (74-106); POTASSIUM - SERUM 3.5 mmol/L (3.5-5.1); PROTEIN - SERUM 6.3 g/dL (6.4-8.2); SODIUM 139 mmol/L (136-145); eGFR NON AFRICAN AMERICAN > 90 mL/min (90-120)
[2018-01-20 04:32] LABS: UREA NITROGEN 3 mg/dL (7-18)
[2018-01-20 08:08] VITALS: BP 101/56
[2018-01-20 10:55] VITALS: BP 93/56
[2018-01-20 14:17] VITALS: Ht 167.6 cm; Wt 85.0 kg
[2018-01-20 15:58] VITALS: BP 103/52
[2018-01-20 21:05] VITALS: BP 113/56
[2018-01-21 01:11] VITALS: BP 160/75
[2018-01-21 05:19] LABS: BASOPHILS 0.2 % (0-2); EOSINOPHILS 5.1 % (0-7); HEMATOCRIT 34.2 % (36.0-48.0); HEMOGLOBIN 10.9 g/dL (12-16); IMMATURE GRANULOCYTES 0.6 % (0-5); MCH 27.2 pg (26.0-34.0); MCHC 31.9 g/dL (31.0-37.0); MCV 85.3 fL (80.0-100.0); MEAN PLATELET VOLUME 9.6 fL (7.4-10.4); MONOCYTES 10.2 % (2-11); NEUTROPHILS 55.9 % (40-80); PLATELET COUNT 363 10x3/uL (130-400); RBC 4.01 10x6/uL (4.00-5.40); RDW 15.8 % (11.5-14.5); WBC 5.3 10x3/uL (4.8-10.8)
[2018-01-21 05:32] LABS: ALBUMIN 2.1 g/dL (3.4-5.0); ALKALINE PHOSPHATASE 55 U/L (46-116); BILIRUBIN - TOTAL 0.51 mg/dL (0.2-1.3); CALC OSMOLALITY 273 mosm/kg (275-300); CALCIUM 8.4 mg/dL (8.5-10.1); CARBON DIOXIDE 26.6 mmol/L (21.0-32.0); CHLORIDE - SERUM 106 mmol/L (98-107); CREATININE - SERUM 0.7 mg/dL (0.6-1.3); GLUCOSE 87 mg/dL (74-106); POTASSIUM - SERUM 3.7 mmol/L (3.5-5.1); PROTEIN - SERUM 6.3 g/dL (6.4-8.2); SODIUM 139 mmol/L (136-145); UREA NITROGEN 3 mg/dL (7-18); eGFR NON AFRICAN AMERICAN > 90 mL/min (90-120)
[2018-01-21 05:34] LABS: ALT (SGPT) 9 U/L (10-68)
[2018-01-21 05:45] VITALS: BP 105/56
[2018-01-21 08:17] VITALS: BP 101/50
[2018-01-21 12:50] VITALS: BP 91/50
[2018-01-21 20:48] VITALS: BP 109/51
[2018-01-22 01:31] VITALS: BP 112/53
[2018-01-22 05:31] LABS: BASOPHILS 0.3 % (0-2); EOSINOPHILS 3.6 % (0-7); HEMATOCRIT 33.7 % (36.0-48.0); HEMOGLOBIN 10.8 g/dL (12-16); IMMATURE GRANULOCYTES 0.7 % (0-5); LYMPHOCYTES 27.5 % (15-50); MCH 27.4 pg (26.0-34.0); MCV 85.5 fL (80.0-100.0); MEAN PLATELET VOLUME 9.3 fL (7.4-10.4); MONOCYTES 10.2 % (2-11); NEUTROPHILS 57.7 % (40-80); PLATELET COUNT 350 10x3/uL (130-400); RBC 3.94 10x6/uL (4.00-5.40); RDW 16.1 % (11.5-14.5); WBC 6.2 10x3/uL (4.8-10.8)
[2018-01-22 05:52] LABS: CALC OSMOLALITY 278 mosm/kg (275-300); CALCIUM 8.1 mg/dL (8.5-10.1); CARBON DIOXIDE 25.7 mmol/L (21.0-32.0); CHLORIDE - SERUM 108 mmol/L (98-107); CREATININE - SERUM 0.7 mg/dL (0.6-1.3); GLUCOSE 80 mg/dL (74-106); POTASSIUM - SERUM 3.8 mmol/L (3.5-5.1); SODIUM 142 mmol/L (136-145); UREA NITROGEN 3 mg/dL (7-18); eGFR NON AFRICAN AMERICAN > 90 mL/min (90-120)
[2018-01-22 06:05] VITALS: BP 107/45
[2018-01-22 08:42] VITALS: BP 99/55
[2018-01-22 11:48] VITALS: BP 119/58
[2018-01-22 16:38] VITALS: BP 98/55
[2018-01-22 20:00] VITALS: BP 119/60
[2018-01-23] VITALS: BP 107/50
[2018-01-23 04:00] VITALS: BP 103/51
[2018-01-23 05:01] LABS: BASOPHILS 0.3 % (0-2); EOSINOPHILS 3.6 % (0-7); HEMOGLOBIN 10.6 g/dL (12-16); IMMATURE GRANULOCYTES 0.8 % (0-5); LYMPHOCYTES 26.7 % (15-50); MCH 27.4 pg (26.0-34.0); MCHC 32.1 g/dL (31.0-37.0); MCV 85.3 fL (80.0-100.0); MEAN PLATELET VOLUME 9.5 fL (7.4-10.4); MONOCYTES 9.6 % (2-11); PLATELET COUNT 340 10x3/uL (130-400); RBC 3.87 10x6/uL (4.00-5.40); RDW 16.1 % (11.5-14.5); WBC 6.4 10x3/uL (4.8-10.8)
[2018-01-23 05:19] LABS: CALC OSMOLALITY 277 mosm/kg (275-300); CALCIUM 8.3 mg/dL (8.5-10.1); CARBON DIOXIDE 25.3 mmol/L (21.0-32.0); CHLORIDE - SERUM 109 mmol/L (98-107); CREATININE - SERUM 0.8 mg/dL (0.6-1.3); GLUCOSE 86 mg/dL (74-106); POTASSIUM - SERUM 3.8 mmol/L (3.5-5.1); SODIUM 142 mmol/L (136-145); eGFR NON AFRICAN AMERICAN 80 mL/min (90-120)
[2018-01-23 05:20] LABS: UREA NITROGEN 2 mg/dL (7-18)
[2018-01-23 08:40] VITALS: BP 111/48
[2018-01-23] MEDS ORDERED: AUGMENTIN 875-11 TAB PO (09:17)
== END 2018-01-23 13:53 | disposition home or self-care (01) ==
LOC: OBSVTIME 16:00 → UNDOADMIN 16:00 → D.M2 16:00 → EDSTATUS 02-06 17:25
PROVIDERS: Family Medicine
DX: J69.0 Pneumonitis due to inhalation of food and vomit (principal); J96.01 Acute respiratory failure with hypoxia; K22.0 Achalasia of cardia; K21.9 Gastro-esophageal reflux disease without esophagitis; F20.9 Schizophrenia, unspecified; F31.9 Bipolar disorder, unspecified; F17.210 Nicotine dependence, cigarettes, uncomplicated; K22.2 Esophageal obstruction; R31.29 Other microscopic hematuria

== ENCOUNTER → 2018-03-03 07:58 | Outpatient (CLI) | payer MEDICARE, MEDICAID ==
[2018-01-20 14:17] VITALS: BMI 30.1
[~2018-03-03 07:58] MED LIST changes: +AUGMENTIN 875-11 TAB PO
== END | disposition home or self-care (01) ==
LOC: D.RT 07:58
DX: J44.9 Chronic obstructive pulmonary disease, unspecified (principal)

== ENCOUNTER → 2018-03-10 18:35 | Outpatient (CLI) | payer MEDICARE, MEDICAID ==
[2018-01-20 14:17] VITALS: BMI 30.1
== END | disposition home or self-care (01) ==
LOC: D.LABREF 18:35
DX: R31.9 Hematuria, unspecified (principal)

== ENCOUNTER 2018-04-06 05:38 | Day surgery (SDC) | payer MEDICARE, MEDICAID ==
[~2018-04-06] VITALS: Ht 167.6 cm; Wt 89.4 kg
[~2018-04-06 05:38] MED LIST changes: +PROAIR; +TRELEGY
[2018-04-06 05:57] LABS: HEMATOCRIT 41.9 % (36.0-48.0); HEMOGLOBIN 13.6 g/dL (12-16); MCH 27.9 pg (26.0-34.0); MCHC 32.5 g/dL (31.0-37.0); MEAN PLATELET VOLUME 9.3 fL (7.4-10.4); RBC 4.87 10x6/uL (4.00-5.40); RDW 16.2 % (11.5-14.5); WBC 5.9 10x3/uL (4.8-10.8)
[2018-04-06 06:33] VITALS: BP 113/69; Ht 167.6 cm; Wt 89.4 kg
--- NOTE | 2018-04-06 08:50 | NUR ---
REC'D FROM SURGERY. FAMILY AT BEDSIDE. HAD TONI TX THEREFORE ENCOURAGED TO HOLD URINE LONG POSSIBLE AND TURN FROM SIDE TO SIDE TO MOVE MEDICATION AROUND. VERBALIZED UNDERSTANDING. FAMILY AT BEDSIDE.
--- NOTE | 2018-04-06 09:10 | NUR ---
UP TO BATHROOM. VOIDED WITHOUT DIFFICULTY. FAMILY AT BEDSIDE.
--- NOTE | 2018-04-06 09:24 | NUR ---
UP TO BATHROOM TO VOID. FL TRAY ORDERED FOR PT.
--- NOTE | 2018-04-06 09:30 | NUR ---
FL TRAY TAKEN TO PT.
--- NOTE | 2018-04-06 09:50 | NUR ---
TOLERATED DIET. IV DC'D WITH CATHETER INTACT. WRITTEN AND VERBAL DC INST GIVEN TO PT. VERBALIZED UNDERSTANDING.
--- NOTE | 2018-04-06 10:00 | NUR ---
DC'D HOME WITH FAMILY VIA PRIVATE VEHICLE. TAKEN TO VEHICLE VIA WC. STABLE AT TIME OF DC.
--- NOTE | 2018-04-06 10:36 | OP ---
PATIENT NAME: ERYN HURT MEDICAL RECORD: [id number] :[birth year] LOCATION:D.OPS ADMISSION DATE: SURGEON: MEMO VILLAGOMEZ MD DATE OF OPERATION: 04/06/2018 SURGEON: Memo Villagomez MD ANESTHESIA: Local anesthetic by Johnathon Nash CRNA. DIAGNOSES: Microscopic hematuria, interstitial cystitis. PROCEDURES: Cystoscopy and intravesical Rimso instillation. FINDINGS: Single ureteral orifices bilaterally. No bladder tumors. Patchy areas of bladder inflammation were seen. CLINICAL HISTORY: This is a 52-year-old female who has a diagnosis of achalasia. She has been complaining of bilateral flank pain due to aspiration pneumonia of both lower lobes. She has the distal esophageal obstruction seen on CT scan. She was found to have microscopic hematuria while she was hospitalized. Urine cytology did not show any signs of a high-grade malignancy in the bladder. She comes today to have cystoscopy done. She also complains of frequent voiding. She has to void every 10 minutes. Urine cultures have shown no growth. SHE IS ALLERGIC TO MORPHINE. She was given Ancef senior application security consultant to the OR. Since she has achalasia, the choice was to do the procedure with local anesthetic only with the patient awake and conscious or to give her a spinal anesthetic. I decided due to the intended brevity of the procedure that we would just go ahead with local anesthetic. DESCRIPTION OF PROCEDURE: The patient was placed in dorsal lithotomy position. She was prepped and draped. Lidocaine jelly was inserted into the urethra. A 17-Romansh cystoscope was inserted into the bladder. The findings are as outlined above. The bladder was then emptied through the scope sheath. The scope was removed. A 16-Romansh red rubber catheter was inserted into the bladder, this was after questioning the patient about her voiding symptoms. She wished to proceed with the Rimso treatment. We instilled 50 mL of Rimso solution into the bladder through the red rubber catheter. The catheter was then removed, leaving the solution in the bladder. The patient will be seen in the office next week to have the Rimso treatment #2 given. TRANSINT:[id number] Voice Confirmation ID: [id number] DOCUMENT ID: [id number] MEMO VILLAGOMEZ MD at 1036 CC: [id number] DICTATION DATE: 04/06/18 0852 ASSISTANT MEDIA BUYER: 04/06/18 1032 [facility] 04/06/18 [facility] [address] [facility] [address]
== END 2018-04-06 10:00 | disposition home or self-care (01) ==
LOC: D.OPS 05:38 → D.PAN 12:15
PROVIDERS: Anesthesiology
DX: N30.11 Interstitial cystitis (chronic) with hematuria (principal); R31.29 Other microscopic hematuria; K22.0 Achalasia of cardia; Z01.812 Encounter for preprocedural laboratory examination

== ENCOUNTER 2018-06-29 05:06 | Day surgery (SDC) | payer MEDICARE, MEDICAID ==
[~2018-06-29] VITALS: Ht 167.6 cm; Wt 90.7 kg
[2018-06-29 05:27] LABS: HEMATOCRIT 42.1 % (36.0-48.0); HEMOGLOBIN 13.8 g/dL (12-16); MCH 28.1 pg (26.0-34.0); MCHC 32.8 g/dL (31.0-37.0); MCV 85.7 fL (80.0-100.0); MEAN PLATELET VOLUME 9.4 fL (7.4-10.4); RBC 4.91 10x6/uL (4.00-5.40); WBC 5.8 10x3/uL (4.8-10.8)
[2018-06-29 06:42] VITALS: BP 96/51; Ht 167.6 cm; Wt 90.7 kg
--- NOTE | 2018-06-29 08:15 | NUR ---
REC'D FROM SURGERY. NO FAMILY AT BEDSIDE. DROWSY. AROUSES TO VERBAL STIMULI. ENCOURAGING TO TURN FROM SIDE TO SIDE TO MOVE RIMSO. COLA BROUGHT TO PATIENT.
--- NOTE | 2018-06-29 08:45 | NUR ---
ASSISTED TO BATHROOM. VOIDED WITHOUT DIFFICULTY. BACK TO BED. WAITING FOR FL TRAY.
--- NOTE | 2018-06-29 08:57 | OP ---
PATIENT NAME: ERYN HURT MEDICAL RECORD: [id number] :[birth year] LOCATION:D.OPS ADMISSION DATE: SURGEON: MEMO VILLAGOMEZ MD DATE OF OPERATION: 06/29/2018 SURGEON: Memo Villagomez MD ANESTHESIA: TIVA by Jaime Friend CRNA. DIAGNOSIS: Interstitial cystitis. PROCEDURES: Cystoscopy, hydrodistention of the bladder, intravesical Rimso instillation. FINDINGS: Single ureteral orifices bilaterally. Diffuse bladder inflammation without any bladder tumors. BLOOD LOSS: None. CLINICAL HISTORY: This is a 53-year-old female with a history of interstitial cystitis. She finished a course of intravesical Rimso over a month ago and then her symptoms came back. She had a workup of microscopic hematuria and her CT scan shows a distal esophageal stricture. She has achalasia. I have referred her to Dr. Saldaña to manage this. She has redeveloped urinary frequency and nocturia. She does not have any suprapubic pain, however. She is scheduled for cystoscopy, hydrodistention, and intravesical Rimso instillation. SHE IS ALLERGIC TO MORPHINE. She was given Ancef senior controls technician to the OR. DESCRIPTION OF PROCEDURE: The patient was given IV sedation. She was then placed into dorsal lithotomy position and prepped and draped. Cystoscopy was performed using a 17-Ecuadorean cystoscope. Findings are as outlined above. The bladder was filled to 500 mL of normal saline and the pressure was maintained for about a minute and then the bladder was drained. A 16-Ecuadorean red rubber catheter was then inserted and 50 mL of Rimso solution was then instilled into the bladder. The catheter was removed, leaving the solution in the bladder. The patient will hold the solution in for at least 15 minutes and then void it out. She will be seen in followup in 2 weeks' time to get a repeat treatment if necessary. TRANSINT:[id number] Voice Confirmation ID: [id number] DOCUMENT ID: [id number] MEMO VILLAGOMEZ MD at 0857 CC: [id number] DICTATION DATE: 06/29/18814 GOVERNMENT PROPERTY INSPECTOR: 06/29/18 [id number] [place] [address]
--- NOTE | 2018-06-29 09:00 | NUR ---
ATE FL TRAY. COFFEE BROUGHT TO PT. NO C/O VOICED. WAITING FOR TRANSPORTATION TO COME BACK TO THE HOSPITAL.
--- NOTE | 2018-06-29 09:44 | NUR ---
UP TO BATHROOM. VOIDING WITHOUT DIFFICULTY. IV DC'D WITH CATHETER INTACT. WAITING ON TRANSPORTATION.
--- NOTE | 2018-06-29 09:55 | NUR ---
WRITTEN AND VERBAL DC INST. GIVEN TO PT . VERBALIZED UNDERSTANDING.
--- NOTE | 2018-06-29 10:05 | NUR ---
DC'D HOME WITH FAMILY VIA PRIVATE VEHICLE. TAKEN TO VEHICLE VIA WC. STABLE AT TIME OF DC.
== END 2018-06-29 10:05 | disposition home or self-care (01) ==
LOC: D.OPS 05:06 → D.PAN 08:30 → D.OPS 10:05
PROVIDERS: Anesthesiology; ATTEND Urology
DX: N30.11 Interstitial cystitis (chronic) with hematuria (principal); R31.29 Other microscopic hematuria; Z88.5 Allergy status to narcotic agent; Z01.812 Encounter for preprocedural laboratory examination

== ENCOUNTER 2018-08-02 09:10 | Day surgery (SDC) | payer MEDICARE, MEDICAID ==
[~2018-08-02 09:10] MED LIST changes: -BENZTROPINE ME0.5 MG PO; +BENZTROPINE MESY1 MG PO
[2018-08-02 09:27] LABS: HEMATOCRIT 42.7 % (36.0-48.0); HEMOGLOBIN 14.2 g/dL (12-16); MCH 28.5 pg (26.0-34.0); MCHC 33.3 g/dL (31.0-37.0); MCV 85.6 fL (80.0-100.0); MEAN PLATELET VOLUME 9.4 fL (7.4-10.4); RBC 4.99 10x6/uL (4.00-5.40); RDW 15.3 % (11.5-14.5); WBC 4.7 10x3/uL (4.8-10.8)
[2018-08-02 11:05] VITALS: BP 91/56; BMI 32.0
--- NOTE | 2018-08-02 16:45 | NUR ---
REC'D FROM RR. FAMILY/FRIEND AT BEDSIDE. COFFEE AND FL TRAY BROUGHT TO PT.
--- NOTE | 2018-08-02 17:15 | NUR ---
TOLERATED FL TRAY. FAMILY/FRIEND AT BEDSIDE. PATIENT ASKING WHEN SHE CAN GO.
--- NOTE | 2018-08-02 17:20 | NUR ---
UP TO BATHROOM AND VOIDED WITHOUT DIFFICULTY.
--- NOTE | 2018-08-02 17:28 | NUR ---
IV DC'D WITH CATHETER INTACT.
--- NOTE | 2018-08-02 17:49 | NUR ---
WRITTEN AND VERBAL DC INST. GIVEN TO PATIENT. VERBALIZED UNDERSTANDING.
--- NOTE | 2018-08-02 17:56 | NUR ---
DC'D HOME WITH FAMILY/FRIEND VIA PRIVATE VEHICLE. TAKEN TO VEHICLE VIA WC. STABLE AT TIME OF DC.
--- NOTE | 2018-08-09 18:51 | OP ---
PATIENT NAME: ERYN HURT MEDICAL RECORD: [id number] :[birth year] LOCATION:D.OPS ADMISSION DATE: SURGEON: MEMO FERRELL MD DATE OF OPERATION: 08/02/2018 PREOPERATIVE DIAGNOSES: 1. Recurrent achalasia. 2. Dilated atonic esophagus. POSTOPERATIVE DIAGNOSES: 1. Recurrent achalasia. 2. Dilated atonic esophagus. 3. Rule out Quintana esophagus. 4. Rule out eosinophilic esophagitis. PROCEDURES: 1. Esophagogastroduodenoscopy with antral, distal esophageal, and mid esophageal biopsies. 2. Balloon dilation of the distal esophagus to #60-Stateless. 3. Intralesional injection of 100 units of therapeutic Botox into the lower esophageal sphincter. SURGEON: Memo Ferrell MD HULL SORTER: None. BLOOD LOSS: Minimal. ANESTHESIA: General. COMPLICATIONS: None. The risks, possible complications, and alternatives to the procedure were explained to the patient. She elects to proceed. The discussion specifically included, but was not limited to, bleeding requiring emergency reoperation, infection, and endoscopic perforation. It is very likely the patient will have recurrent symptoms in the future, however if she does receive some symptomatic relief with these therapies, these therapies can be repeated in the future. OPERATIVE COURSE: The patient was conveyed the operating room electively on 08/02/2018. General anesthesia was induced by the anesthesia staff. This required endotracheal anesthesia in order to protect her airway. I noted the esophagus was easily intubated as were the stomach and duodenum. There was food material within this very large atonic esophagus. Antral biopsies were obtained. I then withdrew into the cardia of the stomach. I advanced a through the catheter balloon. I sequentially dilated the distal esophagus to 60-Stateless. The balloon dilator was then removed. I then advanced the sclerotherapy needle, 100 units of therapeutic Botox had been diluted in 10 cc of normal saline, this was injected at 5 places in the tightest area of the achalasia. The sclerotherapy needle was removed. Multiple distal esophageal biopsies were obtained to rule out Quintana esophagus. OPERATIVE REPORT [id number] ERYN HURT Multiple mid esophageal biopsies were obtained in order to rule out eosinophilic esophagitis. The endoscope was then withdrawn under direct vision. I will see the patient in my office in 3 weeks. TRANSINT:[id number] Voice Confirmation ID: [id number] DOCUMENT ID: [id number] MEMO FERRELL MD at 1851 CC: VERITO CARDOSO DO [id number] DICTATION DATE: 08/02/18 1633 MINE DEPUTY: 08/02/182022 [facility] 08/02/18 [facility] [address] [place] [address]
== END 2018-08-02 17:56 | disposition home or self-care (01) ==
LOC: D.OPS 09:10 → D.PAN 10:45 → D.OPS 12:00
PROVIDERS: Anesthesiology; ATTEND Surgery
DX: K22.0 Achalasia of cardia (principal); K22.8 Other specified diseases of esophagus; K29.50 Unspecified chronic gastritis without bleeding; K22.10 Ulcer of esophagus without bleeding; Z01.812 Encounter for preprocedural laboratory examination

== ENCOUNTER 2019-06-06 23:47 | Emergency (ER) | payer MEDICARE ==
[~2019-06-06] VITALS: Ht 167.6 cm; Wt 91.4 kg
[2019-06-07 00:01] VITALS: Ht 167.6 cm; Wt 91.4 kg
[2019-06-07] MEDS ORDERED: TRELEGY ELLIPT1 EACH INH (00:03)
[2019-06-07] MEDS ORDERED: TORADOL10 MG PO (00:44)
[2019-06-07 01:00] VITALS: BP 114/61
== END 2019-06-07 01:00 | disposition home or self-care (01) ==
LOC: D.ER 23:47
DX: M54.16 Radiculopathy, lumbar region (principal); M54.5 Low back pain; J45.909 Unspecified asthma, uncomplicated; K21.9 Gastro-esophageal reflux disease without esophagitis; Z72.0 Tobacco use

== ENCOUNTER → 2019-08-08 12:14 | Outpatient (CLI) | payer MEDICARE ==
[2019-06-07 00:01] VITALS: BMI 32.5
[~2019-08-08 12:14] MED LIST changes: +TORADOL10 MG PO; +TRELEGY ELLIPT1 EACH INH
== END | disposition home or self-care (01) ==
LOC: D.RT 12:14
PROVIDERS: ATTEND Internal Medicine Pulmonary Disease
DX: J44.9 Chronic obstructive pulmonary disease, unspecified (principal)